=== PATIENT | male | born 1980 ===

== ENCOUNTER 2019-07-07 21:35 | Emergency (ER) | payer SELFPAY ==
[~2019-07-07] VITALS: Ht 177.8 cm; Wt 84.1 kg
[2019-07-07 22:09] VITALS: BP 113/73
[2019-07-07] MEDS ORDERED: RISP4 PO (22:09)
[2019-07-07] MEDS ORDERED: GABA-1181 PO (22:10)
== END 2019-07-07 23:17 | disposition left against medical advice (07) ==
LOC: EMS 21:38
DX: F41.9 Anxiety disorder, unspecified (principal); Z53.21 Procedure and treatment not carried out due to patient leaving prior to being seen by health care provider